=== PATIENT | female | born 1955 | race Caucasian/White ===

== ENCOUNTER 2019-02-10 11:29 | Emergency (ER) | payer OTHER ==
[~2019-02-10] VITALS: Ht 162.6 cm; Wt 79.4 kg
[2019-02-10] MEDS ORDERED: LISINOPRIL10 MG (11:50)
[2019-02-10] MEDS ORDERED: ASPIR 8181 MG (11:50)
[2019-02-10] MEDS ORDERED: SYNTHROID200 MCG (11:50)
[2019-02-10] MEDS ORDERED: ZOCOR20 MG (11:51)
== END 2019-02-10 15:09 | disposition home or self-care (01) ==
LOC: ER 11:29
DX: S20.212A Contusion of left front wall of thorax, initial encounter (principal); S20.211A Contusion of right front wall of thorax, initial encounter; S10.83XA Contusion of other specified part of neck, initial encounter; S60.221A Contusion of right hand, initial encounter; M62.838 Other muscle spasm; V49.9XXA Car occupant (driver) (passenger) injured in unspecified traffic accident, initial encounter; Y93.89 Activity, other specified; Y92.488 Other paved roadways as the place of occurrence of the external cause; Y99.8 Other external cause status